=== PATIENT | female | born 1970 | race Caucasian/White ===

== ENCOUNTER 2017-05-20 20:58 | Emergency (ER) | payer MEDICAID ==
[2017-05-20 22:08] LABS: ABSOLUTE BASOPHILS # (AUTO) 0.1 10^3/uL (0.0-0.2); ABSOLUTE EOSINOPHILS # (AUTO) 0.5 10^3/uL (0.0-0.6); ABSOLUTE MONOCYTES (AUTO) 0.9 10^3/uL (0.1-1.4); ABSOLUTE NEUT (AUTO) 7.3 10^3/uL (1.7-8.2); BASOPHILS % (AUTO) 0.6 % (0-2); EOSINOPHILS % (AUTO) 3.5 % (0-6); HEMATOCRIT 38.8 % (36.0-47.0); HEMOGLOBIN 13.2 g/dL (12.0-15.5); LYMPHOCYTES % (AUTO) 36.5 % (13-45); MEAN CORPUSCULAR HEMOGLOBIN 30.5 pg (27.0-33.4); MEAN CORPUSCULAR VOLUME 90 fl (80-97); MONOCYTES % (AUTO) 6.5 % (3-13); PLATELET COUNT 368 10^3/uL (150-450); RED BLOOD COUNT 4.31 10^6/uL (3.72-5.28); RED CELL DISTRIBUTION WIDTH 12.7 % (11.5-14.0); SEGMENTED NEUTROPHILS % (AUTO) 52.9 % (42-78); TOTAL CELLS COUNTED % (AUTO) 100 %; WHITE BLOOD COUNT 13.7 10^3/uL (4.0-10.5)
[2017-05-20 22:19] LABS: ALANINE AMINOTRANSFERASE 28 U/L (9-52); ALBUMIN 4.1 g/dL (3.5-5.0); ALKALINE PHOSPHATASE 89 U/L (38-126); ANION GAP 10 (5-19); ASPARTATE AMINO TRANSFERASE 24 U/L (14-36); BILIRUBIN,DIRECT 0.4 mg/dL (0.0-0.4); BILIRUBIN,TOTAL 0.4 mg/dL (0.2-1.3); BLOOD UREA NITROGEN 21 mg/dL (7-20); CARBON DIOXIDE 26 mmol/L (22-30); CHLORIDE 104 mmol/L (98-107); GLUCOSE 91 mg/dL (75-110); LIPASE 81.6 U/L (23-300); POTASSIUM 4.3 mmol/L (3.6-5.0); SODIUM 140.2 mmol/L (137-145)
[2017-05-20] MEDS ORDERED: MORPHINE SULFATE 10 MG/ML INJ IV ONE (22:33)
[2017-05-20] MEDS ORDERED: ONDANSETRON HCL INJ/PF 4 MG/2 ML SDV IV ONE (22:33)
[2017-05-20] MEDS ORDERED: NORMAL SALINE 1000 ML 1,000 ML IV ONE (22:33)
[2017-05-20 22:34] LABS: APPEARANCE,URINE SLIGHTLY-CLOUDY; BILIRUBIN,URINE SMALL (NEGATIVE); COLOR,URINE YELLOW; GLUCOSE, URINE NEGATIVE (NEGATIVE); KETONES,URINE NEGATIVE (NEGATIVE); LEUKOCYTE ESTERASE,URINE MODERATE (NEGATIVE); NITRITE,URINE NEGATIVE (NEGATIVE); PROTEIN,URINE NEGATIVE (NEGATIVE); URINE SPECIFIC GRAVITY 1.027
--- NOTE | 2017-05-20 22:35 | ER Document Report ---
ED GI/ - General Chief Complaint: Rectal Bleeding Stated Complaint: RECTAL BLEEDING Time Seen by Provider: 05/20/17 22:11 Notes: Patient is a 46-year-old female who comes emergency department for chief complaint of rectal bleed, she states she has had rectal bleeding intermittently for the past 9 days, she states that today if she even squat she will have some rectal bleeding. She states she feels some discomfort rectally, it is not uncomfortable to sit, she does have pain in her abdomen that feels like it is worsening. She denies nausea or vomiting, she had a normal bowel movement earlier today along with some bright red blood dripping into the toilet. She denies fever or chills. Past medical history includes hysterectomy , orthopedic surgeries, she smokes, she is on methotrexate for psoriatic arthritis, has had bladder cancer which she completed treatment for. TRAVEL OUTSIDE OF THE [place] IN LAST 30 DAYS: No - Related Data Allergies/Adverse Reactions: levofloxacin [From Levaquin] Allergy (Verified 09/17/14 23:52) Past Medical History - General Information source: Patient - Social History Smoking Status: Current Every Day Smoker Chew tobacco use (# tins/day): No Frequency of alcohol use: Rare Drug Abuse: None Lives with: Family Family History: Reviewed & Not Pertinent Patient has suicidal ideation: No Patient has homicidal ideation: No Renal/ Medical History: Reports: Hx Kidney Stones, Hx Renal Insufficiency. Denies: Hx Peritoneal Dialysis GI Medical History: Reports: Hx Gastroesophageal Reflux Disease Musculoskeltal Medical History: Reports Hx Arthritis - psoriatic arthritis, Reports Hx Musculoskeletal Deformity, Reports Hx Musculoskeletal Trauma Past Surgical History: Reports: Hx Genitourinary Surgery - Bladder surgery for cancer, Hx Hysterectomy, Hx Orthopedic Surgery - back and neck - Immunizations Hx Diphtheria, Pertussis, Tetanus Vaccination: Yes Review of Systems - Review of Systems Constitutional: No symptoms reported EENT: No symptoms reported Cardiovascular: No symptoms reported Respiratory: No symptoms reported Gastrointestinal: See HPI Genitourinary: No symptoms reported Female Genitourinary: No symptoms reported Musculoskeletal: No symptoms reported Skin: No symptoms reported Hematologic/Lymphatic: No symptoms reported Neurological/Psychological: No symptoms reported Physical Exam - Vital signs Vitals: Temp Pulse Resp BP Pulse Ox 97.7 F 98 20 126/77 H 97 05/20/17 21:09 05/20/17 21:09 05/20/17 21:09 05/20/17 21:09 05/20/17 21:09 - General General appearance: Appears well In distress: None - HEENT Head: Normocephalic, Atraumatic Eyes: Normal Conjunctiva: Normal Extraocular movements intact: Yes Eyelashes: Normal Pupils: PERRL Mouth/Lips: Normal Mucous membranes: Normal Pharynx: Normal Neck: Normal - Respiratory Respiratory status: No respiratory distress Breath sounds: Normal. No: Decreased air movement, Wheezing - Cardiovascular Rhythm: Regular. No: Tachycardia Heart sounds: Normal auscultation, S1 appreciated, S2 appreciated - Abdominal Inspection: Normal Tenderness: Tender - Rectal Stool: Heme negative, See lab result. No: Heme positive, Black, Bloody Hemorrhoids: None. No: Internal, External, Anal fissure, Mass Notes: Carla PCT present during evaluation - Back Back: Normal, Nontender - Extremities General upper extremity: Normal inspection, Nontender, Normal strength, Normal temperature General lower extremity: Normal inspection, Nontender, Normal strength, Normal temperature - Neurological Neuro grossly intact: Yes Cognition: Normal Orientation: AAOx4 Keon Coma Scale Eye Opening: Spontaneous Keon Coma Scale Verbal: Oriented [place] Coma Scale Motor: Obeys Commands [place] Coma Scale Total: 15 Speech: Normal Cranial nerves: Normal Cerebellar coordination: Normal Motor strength normal: LUE, RUE, LLE, RLE 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 Mild leukocytosis with no bandemia or shift. Chemistry unremarkable. Urinalysis nonspecific. Discussed with patient, recommend a CAT scan to rule out perforation, abscess, or other acute abdominal causes. My suspicion is diverticulitis based on her presentation with unremarkable rectal exam but reported rectal bleeding with abdominal pain. CT shows no acute abnormality. No evidence of mass, abscess, perforation. Discussed with patient, she will be covered for diverticulitis, however she needs to follow-up closely for additional evaluation including possible colonoscopy for bleeding sources and pain sources especially with her cancer history. Patient states full understanding of this, states she will call Monday for close follow-up, discussed treatment, return precautions, patient states satisfaction and agreement. - Vital Signs Vital signs: Temp Pulse Resp BP Pulse Ox 97.7 F 75 16 139/79 H 98 05/20/17 21:09 05/21/17 01:00 05/21/17 01:00 05/21/17 01:00 05/21/17 01:00 - Laboratory Result Diagrams: 05/20/17 21:40 05/20/17 21:40 Laboratory results interpreted by me: 05/20/17 05/20/17 05/20/17 21:40 21:40 21:40 WBC 13.7 H Absolute Lymphocytes 5.0 H BUN 21 H Urine Blood SMALL H Urine Bilirubin SMALL H Urine Urobilinogen 2.0 H Ur Leukocyte Esterase MODERATE H Discharge - Discharge Clinical Impression: Hematochezia Abdominal pain Qualifiers: Abdominal location: lower abdomen, unspecified Qualified Code(s): R10.30 - Lower abdominal pain, unspecified Condition: Stable Disposition: HOME, SELF-CARE Additional Instructions: Your CAT scan shows diverticulosis, no obvious areas of inflammation or abnormality. Your blood counts, examination, and symptoms are most suggestive of diverticulitis. We are treating you with Augmentin for this. Take the pain and nausea medication if needed, I recommend clear fluid diet for the first 1-2 days. Please follow closely with your provider on Monday as discussed, you will need additional evaluation for bleeding if symptoms continue. Return if you worsen including heavy bleeding, passing out, fever, severe abdominal pain, vomiting, or any other concerning or worsening symptoms. Prescriptions: Amox Tr/Potassium Clavulanate [Augmentin 875-125 Tablet] 1 tab PO BID 7 Days tablet Hydrocodone/Acetaminophen [[place]well 5-325 mg Tablet] 1 - 2 tab PO ASDIR #15 tablet Ondansetron [Zofran Odt 4 mg Tablet] 1 - 2 tab PO Q4H PRN #15 tab.rapdis PRN Reason: For Nausea/Vomiting
--- NOTE | 2017-05-20 23:40 | RADIOLOGY REPORT (SQ) ---
EXAM DESCRIPTION: CT ABD/PELVIS WITH IV ONLY COMPLETED DATE/TIME: 05/20/2017 11:28 pm REASON FOR STUDY: eval abd pain, rectal bleeding COMPARISON: 11/10/2015. TECHNIQUE: CT scan of the abdomen and pelvis performed using helical scanning technique with dynamic intravenous contrast injection. No oral contrast. Images reviewed with lung, soft tissue, and bone windows. Reconstructed coronal and sagittal MPR images reviewed. Delayed images for evaluation of the urinary system also acquired. All images stored on PACS. All CT scanners at this facility use dose modulation, iterative reconstruction, and/or weight based d osing when appropriate to reduce radiation dose to as low as reasonably achievable (ALARA). [facility]: Dose Right [facility]: CareDose [facility]: Dose Right [facility]: Teradose 4D [facility]: MyDROBE CONTRAST TYPE AND DOSE: contrast/concentration: Isovue 370.00 mg/ml; Total Contrast Delivered: 100.0 ml; Total Saline Delivered: 70.0 ml RENAL FUNCTION: None required. The patient is less than 50 years old. RADIATION DOSE: CT Rad equipment meets quality standard of care and radiation dose reduction techniq ues were employed. CTDIvol: 9.5 - 11.0 mGy. DLP: 1064 mGy-cm.. LIMITATIONS: None. FINDINGS: LOWER CHEST: No significant findings. No nodules or infiltrates. LIVER: Normal size. No masses. No dilated ducts. SPLEEN: Normal size. No focal lesions. PANCREAS: No masses. No significant calcifications. No adjacent inflammation or peripancreatic fluid collections. Pancreatic duct not dilated. GALLBLADDER: No identified stones by CT criteria. No inflammatory changes to suggest cholecystitis. ADRENAL GLANDS: No significant masses or asymmetry. RIGHT KIDNEY AND URETER: No solid masses. No significant calcifications. No hydronephrosis or hyd roureter. LEFT KIDNEY AND URETER: No solid masses. No significant calcifications. No hydronephrosis or hydr oureter. AORTA AND VESSELS: No aneurysm. No dissection. Renal arteries, SMA, celiac without stenosis. RETROPERITONEUM: No retroperitoneal adenopathy, hemorrhage or masses. BOWEL AND PERITONEAL CAVITY: There are few diverticuli in the descending and sigmoid colon. No w[place]ka s or inflammatory changes. No free fluid or peritoneal masses. APPENDIX: Normal. PELVIS: No mass. No free fluid. Normal bladder. ABDOMINAL WALL: No masses. No hernias. BONES: No significant or acute findings. OTHER: No other significant finding. IMPRESSION: MILD COLONIC DIVERTICULOSIS. NO CT FINDINGS OF ACUTE DIVERTICULITIS. NO OTHER SIGNIFIC ANT OR ACUTE FINDING IN THE ABDOMEN OR PELVIS ON CT SCAN WITH IV CONTRAST. TECHNICAL DOCUMENTATION: JOB ID: [id number] Quality ID # [id number]: Final reports with documentation of one or more dose reduction techniques (e.g., Au tomated exposure control, adjustment of the mA and/or kV according to patient size, use of iterative reconstruction technique) 2010 [employer]- All Rights Reserved Reading location - IP/workstation name: [email or web address]
[2017-05-20] MEDS ORDERED: HYDROCODONE/ACETAMINOPHEN 5-325 MG (6 TAB/ER DISP) PO PRN (23:52)
[2017-05-20] MEDS ORDERED: AMOXICILLIN TR/POT CLAVULANATE 500-125 MG TAB PO ONE (23:52)
[2017-05-20] MEDS ORDERED: ONDANSETRON ODT 4 MG TAB (6 TAB/ER DISP) PO PRN (23:52)
[2017-05-21] MEDS ORDERED: SUCRALFATE 1 GM TABLET PO ONE (00:20)
[2017-05-21] MEDS ORDERED: FAMOTIDINE 20 MG TABLET PO ONE (00:20)
[2017-05-21 01:00] VITALS: BP 139/79
== END 2017-05-21 01:00 | disposition home or self-care (01) ==
LOC: ER 20:58
DX: K92.1 Melena (principal); R10.30 Lower abdominal pain, unspecified; R10.9 Unspecified abdominal pain; D72.829 Elevated white blood cell count, unspecified; F17.200 Nicotine dependence, unspecified, uncomplicated; Z85.51 Personal history of malignant neoplasm of bladder; Z79.899 Other long term (current) drug therapy
CPT/HCPCS: 99284; 96361; 96374; 96375; 86900; 86901; 36415; 86850; 83690; 85025; 82272; 80053; 81001; 74177; J3490; J2270; J2405; J7030

== ENCOUNTER 2017-06-14 09:15 | Emergency (ER) | payer MEDICAID ==
[2017-06-14 09:37] VITALS: BP 131/82
--- NOTE | 2017-06-14 09:59 | ER Document Report ---
ED Medical Screen (RME) - General Chief Complaint: Abdominal Pain Stated Complaint: RECTAL BLEEDING Time Seen by Provider: 06/14/17 09:57 Mode of Arrival: Ambulatory Information source: Patient TRAVEL OUTSIDE OF THE [place] IN LAST 30 DAYS: No - HPI Onset: Last week Onset/Duration: Worse - THIS AM Quality of pain: Cramping Associated Symptoms: Chills, Fever, Other - RECTAL BLEEDING Exacerbated by: Denies Relieved by: Denies Similar symptoms previously: Yes Recently seen / treated by doctor: Yes - Related Data Allergies/Adverse Reactions: levofloxacin [From Levaquin] Allergy (Verified 06/14/17 09:19) Home Medications: cipro, flagyl, synthroid, effexor, melatonin, benadryl, embrel , methotrexate Past Medical History - General Information source: Patient - Social History Chew tobacco use (# tins/day): No Frequency of alcohol use: None Drug Abuse: None Family history: Arthritis, CAD, CVA, DM, Hyperlipidemia, Hypertension, Malignancy - Past Medical History Cardiac Medical History: Reports: None Pulmonary Medical History: Reports: None Neurological Medical History: Reports: None Endocrine Medical History: Reports: None Renal/ Medical History: Reports: Hx Kidney Stones, Hx Renal Insufficiency. Denies: Hx Peritoneal Dialysis GI Medical History: Reports: Hx Diverticulitis, Hx Gastroesophageal Reflux Disease Musculoskeltal Medical History: Reports Hx Arthritis - psoriatic arthritis, Reports Hx Musculoskeletal Deformity, Reports Hx Musculoskeletal Trauma Psychiatric Medical History: Reports: None Past Surgical History: Reports: Hx Genitourinary Surgery - Bladder surgery for cancer, Hx Hysterectomy, Hx Orthopedic Surgery - back and neck - Immunizations Hx Diphtheria, Pertussis, Tetanus Vaccination: Yes Review of Systems - Review of Systems Constitutional: Chills, Fever EENT: No symptoms reported Cardiovascular: No symptoms reported Respiratory: No symptoms reported Gastrointestinal: See HPI Genitourinary: No symptoms reported Musculoskeletal: No symptoms reported Skin: No symptoms reported Neurological/Psychological: No symptoms reported Physical Exam - Vital signs Vitals: Temp Pulse Resp BP Pulse Ox 98.4 F 92 20 131/82 H 99 06/14/17 09:36 06/14/17 09:36 06/14/17 09:36 06/14/17 09:36 06/14/17 09:36 Interpretation: Normal. No: Tachycardic, Tachypneic, Febrile - General General appearance: Appears well, Alert In distress: None - HEENT Head: Normocephalic Eyes: Normal Conjunctiva: Normal Mouth/Lips: Normal Mucous membranes: Normal - Respiratory Respiratory status: No respiratory distress - Cardiovascular Rhythm: Regular Course - Vital Signs Vital signs: Temp Pulse Resp BP Pulse Ox 98.4 F 92 20 131/82 H 99 06/14/17 09:36 06/14/17 09:36 06/14/17 09:36 06/14/17 09:36 06/14/17 09:36
[2017-06-14] MEDS ORDERED: NORMAL SALINE 1000 ML 1,000 ML IV PRN (10:00)
[2017-06-14] MEDS ORDERED: ONDANSETRON HCL INJ/PF 4 MG/2 ML SDV IV ONE ×2 (10:09→12:02)
[2017-06-14 11:07] LABS: ABSOLUTE EOSINOPHILS # (AUTO) 0.2 10^3/uL (0.0-0.6); ABSOLUTE LYMPHOCYTES (AUTO) 2.9 10^3/uL (0.5-4.7); ABSOLUTE MONOCYTES (AUTO) 0.5 10^3/uL (0.1-1.4); ABSOLUTE NEUT (AUTO) 6.8 10^3/uL (1.7-8.2); BASOPHILS % (AUTO) 0.4 % (0-2); EOSINOPHILS % (AUTO) 2.1 % (0-6); LYMPHOCYTES % (AUTO) 27.7 % (13-45); MEAN CORPUSCULAR HEMOGLOBIN 31.1 pg (27.0-33.4); MEAN CORPUSCULAR VOLUME 92 fl (80-97); MONOCYTES % (AUTO) 4.8 % (3-13); PLATELET COUNT 334 10^3/uL (150-450); RED BLOOD COUNT 4.81 10^6/uL (3.72-5.28); RED CELL DISTRIBUTION WIDTH 13.8 % (11.5-14.0); TOTAL CELLS COUNTED % (AUTO) 100 %; WHITE BLOOD COUNT 10.4 10^3/uL (4.0-10.5)
[2017-06-14 11:11] LABS: APPEARANCE,URINE CLEAR; BILIRUBIN,URINE NEGATIVE (NEGATIVE); COLOR,URINE YELLOW; GLUCOSE, URINE NEGATIVE (NEGATIVE); KETONES,URINE NEGATIVE (NEGATIVE); LEUKOCYTE ESTERASE,URINE NEGATIVE (NEGATIVE); NITRITE,URINE NEGATIVE (NEGATIVE); PROTEIN,URINE NEGATIVE (NEGATIVE); URINE SPECIFIC GRAVITY 1.008; UROBILINOGEN,URINE NEGATIVE mg/dL (<2.0)
[2017-06-14 11:12] LABS: INTERNATIONAL RATION (INR) 0.94; PROTHROMBIN TIME 13.1 SEC (11.4-15.4)
[2017-06-14 11:27] LABS: ALANINE AMINOTRANSFERASE 25 U/L (9-52); ALBUMIN 4.6 g/dL (3.5-5.0); ALKALINE PHOSPHATASE 88 U/L (38-126); ANION GAP 12 (5-19); ASPARTATE AMINO TRANSFERASE 21 U/L (14-36); BILIRUBIN,DIRECT 0.4 mg/dL (0.0-0.4); BILIRUBIN,TOTAL 0.5 mg/dL (0.2-1.3); BLOOD UREA NITROGEN 16 mg/dL (7-20); CALCIUM 10.3 mg/dL (8.4-10.2); CARBON DIOXIDE 27 mmol/L (22-30); CHLORIDE 103 mmol/L (98-107); GLUCOSE 97 mg/dL (75-110); LIPASE 135.1 U/L (23-300); POTASSIUM 4.6 mmol/L (3.6-5.0); SODIUM 142.3 mmol/L (137-145); TOTAL PROTEIN 7.4 g/dL (6.3-8.2)
[2017-06-14] MEDS ORDERED: MORPHINE SULFATE 10 MG/ML INJ IV ONE (12:02)
--- NOTE | 2017-06-14 14:03 | RADIOLOGY REPORT (SQ) ---
EXAM DESCRIPTION: CT ABD/PELVIS WITH IV ORAL COMPLETED DATE/TIME: 06/14/2017 1:47 pm REASON FOR STUDY: ABD. PAIN, RECTAL BLEEDING, H/O DIVERTICULITIS COMPARISON: 11/10/2015, 05/20/2017 CT abdomen pelvis TECHNIQUE: CT scan of the abdomen and pelvis performed using helical scanning technique with dynamic intravenous contrast injection. Patient drank oral contrast. Images reviewed with lung, soft tissue , and bone windows. Reconstructed coronal and sagittal MPR images reviewed. Delayed images for evalua tion of the urinary system also acquired. All images stored on PACS. All CT scanners at this facility use dose modulation, iterative reconstruction, and/or weight based d osing when appropriate to reduce radiation dose to as low as reasonably achievable (ALARA). [facility]: Dose Right [facility]: CareDose [facility]: Dose Right [facility]: Teradose 4D [facility]: No.1 Traveller CONTRAST TYPE AND DOSE: contrast/concentration: Isovue 370.00 mg/ml; Total Contrast Delivered: 94.0 ml; Total Saline Delivered: 71.0 ml RENAL FUNCTION: Creatinine 0.6 at RADIATION DOSE: CT Rad equipment meets quality standard of care and radiation dose reduction techniq ues were employed. CTDIvol: 9.0 - 12.6 mGy. DLP: 1205 mGy-cm.. LIMITATIONS: None. FINDINGS: LOWER CHEST: No significant findings. No nodules or infiltrates. Bilateral breast implant s are present LIVER: Normal size. No masses. No dilated ducts. SPLEEN: Normal size. No focal lesions. PANCREAS: No masses. No significant calcifications. No adjacent inflammation or peripancreatic fluid collections. Pancreatic duct not dilated. GALLBLADDER: No identified stones by CT criteria. No inflammatory changes to suggest cholecystitis. ADRENAL GLANDS: No significant masses or asymmetry. RIGHT KIDNEY AND URETER: No solid masses. No significant calcifications. No hydronephrosis or hyd roureter. LEFT KIDNEY AND URETER: No solid masses. No significant calcifications. No hydronephrosis or hydr oureter. AORTA AND VESSELS: No aneurysm. No dissection. Renal arteries, SMA, celiac without stenosis. RETROPERITONEUM: No retroperitoneal adenopathy, hemorrhage or masses. BOWEL AND PERITONEAL CAVITY: Patient drank oral contrast. No CT evidence of bowel obstruction or arabella e intraperitoneal air or fluid. Few descending and sigmoid colon diverticuli are present without CT signs of acute diverticulitis. APPENDIX: Normal. PELVIS: No mass. No free fluid. Normal bladder. Patient is post hysterectomy. Right ovary 5 x 2.5 cm in size with a 3.5 cm cyst best shown on axial images 69-75. Left ovary 3 x 2 cm in size on axial image 70. Small amount of air bubbles in the vagina, nonspecific ABDOMINAL WALL: No masses. No hernias. BONES: No significant or acute findings. OTHER: No other significant finding. IMPRESSION: No CT evidence of bowel obstruction, free intraperitoneal air or fluid, or intra-abdomin al or pelvic abscess. Right-sided ovarian cyst. TECHNICAL DOCUMENTATION: JOB ID: [id number] Quality ID # [id number]: Final reports with documentation of one or more dose reduction techniques (e.g., Au tomated exposure control, adjustment of the mA and/or kV according to patient size, use of iterative reconstruction technique) 2010 [employer]- All Rights Reserved Reading location - IP/workstation name: [email or web address]
[2017-06-14] MEDS ORDERED: METRONIDAZOLE 500 MG TABLET PO ONE (15:27)
[2017-06-14] MEDS ORDERED: CIPROFLOXACIN HCL 500 MG TABLET PO ONE (15:27)
[2017-06-14] MEDS ORDERED: ONDANSETRON 4 MG TAB.RAPDIS PO ONE (15:27)
[2017-06-14] MEDS ORDERED: DICYCLOMINE HCL 20 MG TABLET PO ONE (15:27)
--- NOTE | 2017-06-14 15:37 | ER Document Report ---
ED General - General Chief Complaint: Abdominal Pain Stated Complaint: RECTAL BLEEDING Time Seen by Provider: 06/14/17 09:57 Mode of Arrival: Ambulatory TRAVEL OUTSIDE OF THE [place] IN LAST 30 DAYS: No - HPI Patient complains to provider of: Abdominal pain Notes: Patient coming in for left lower quadrant abdominal pain also states she is having bloody stools. Patient states recently seen and diagnosed diverticulitis. Patient states she was on antibiotics 7 days Augmentin saw her PCP started on ciprofloxacin still having pains and now is on another course of ofloxacin and Flagyl. Patient denies any fevers chills nausea vomiting. Patient resting comfortably upon my evaluation. States lower quadrant abdominal pain achy. - Related Data Allergies/Adverse Reactions: levofloxacin [From Levaquin] Allergy (Verified 06/14/17 09:19) bees Allergy (Uncoded 06/14/17 11:55) Home Medications: cipro, flagyl, synthroid, effexor, melatonin, benadryl, embrel , methotrexate Past Medical History - General Information source: Patient - Social History Smoking Status: Current Every Day Smoker Chew tobacco use (# tins/day): No Frequency of alcohol use: None Drug Abuse: None Family History: Reviewed & Not Pertinent Patient has suicidal ideation: No Patient has homicidal ideation: No - Past Medical History Cardiac Medical History: Reports: None Pulmonary Medical History: Reports: None Neurological Medical History: Reports: None Endocrine Medical History: Reports: None Renal/ Medical History: Reports: Hx Kidney Stones, Hx Renal Insufficiency. Denies: Hx Peritoneal Dialysis GI Medical History: Reports: Hx Diverticulitis, Hx Gastroesophageal Reflux Disease Musculoskeltal Medical History: Reports Hx Arthritis - psoriatic arthritis, Reports Hx Musculoskeletal Deformity, Reports Hx Musculoskeletal Trauma Psychiatric Medical History: Reports: None Past Surgical History: Reports: Hx Abdominal Surgery - Abdominoplasty, Hx Genitourinary Surgery - Bladder surgery for cancer, Hx Hysterectomy, Hx Orthopedic Surgery - back and neck - Immunizations Hx Diphtheria, Pertussis, Tetanus Vaccination: Yes Review of Systems - Review of Systems Constitutional: No symptoms reported EENT: No symptoms reported Cardiovascular: No symptoms reported Respiratory: No symptoms reported Gastrointestinal: Abdominal pain, Rectal bleeding Genitourinary: No symptoms reported Female Genitourinary: No symptoms reported Musculoskeletal: No symptoms reported Skin: No symptoms reported Hematologic/Lymphatic: No symptoms reported Neurological/Psychological: No symptoms reported -: Yes All other systems reviewed and negative Physical Exam - Vital signs Vitals: Temp Pulse Resp BP Pulse Ox 98.4 F 92 20 131/82 H 99 06/14/17 09:36 06/14/17 09:36 06/14/17 09:36 06/14/17 09:36 06/14/17 09:36 Interpretation: Normal - General General appearance: Appears well, Alert - HEENT Head: Normocephalic, Atraumatic Eyes: Normal Pupils: PERRL - Respiratory Respiratory status: No respiratory distress Chest status: Nontender Breath sounds: Normal Chest palpation: Normal - Cardiovascular Rhythm: Regular Heart sounds: Normal auscultation Murmur: No - Abdominal Inspection: Normal Distension: No distension Bowel sounds: Normal Tenderness: Nontender Organomegaly: No organomegaly - Rectal Stool: Heme positive - Light brown stool on rectal exam Hemorrhoids: None - Back Back: Normal, Nontender - Extremities General upper extremity: Normal inspection, Nontender, Normal color, Normal ROM , Normal temperature General lower extremity: Normal inspection, Nontender, Normal color, Normal ROM , Normal temperature, Normal weight bearing. No: Arabella's sign - Neurological Neuro grossly intact: Yes Cognition: Normal Orientation: AAOx4 Keon Coma Scale Eye Opening: Spontaneous Keon Coma Scale Verbal: Oriented [place] Coma Scale Motor: Obeys Commands [place] Coma Scale Total: 15 Speech: Normal Motor strength normal: LUE, RUE, LLE, RLE Sensory: Normal - Psychological Associated symptoms: Normal affect, Normal mood - Skin Skin Temperature: Warm Skin Moisture: Dry Skin Color: Normal Course - Re-evaluation Re-evalutation: 06/14/17 19:16 Patient coming in for evaluation of left lower quadrant abdominal pain. CT scan otherwise negative. No leukocytosis. Patient does have apparently microscopic blood is Hemoccult was positive however light brown stool on examination patient case was discussed with Dr. Brunson. Recommended extended course of antibiotics and follow-up in his office or another GI specialist. Patient was encouraged follow-up with her PCP along with GI specialist. The patient presents with abdominal pain without signs of peritonitis or other life-threatening or serious etiology. The patient appears stable for discharge and has been instructed to return immediately if the symptoms worsen in any way , or in 8-12hr if not improved for re-evaluation. The patient has been instructed to return if the symptoms worsen or change in any way. - Vital Signs Vital signs: Temp Pulse Resp BP Pulse Ox 98.4 F 92 20 131/82 H 99 06/14/17 09:36 06/14/17 09:36 06/14/17 09:36 06/14/17 09:36 06/14/17 09:36 - Laboratory Result Diagrams: 06/14/17 10:38 06/14/17 10:38 Laboratory results interpreted by me: 06/14/17 06/14/17 10:38 10:38 Calcium 10.3 H Urine Blood MODERATE H Discharge - Discharge Clinical Impression: Diverticulitis Condition: Good Disposition: HOME, SELF-CARE Instructions: Diverticulitis ([facility]) Additional Instructions: Follow-up with your primary care physician. Your CAT scan today does not show any signs of acute diverticulitis or complication from previous treatment. Your laboratory results also are negative for any signs of bad infection. I discussed your case with our GI specialist Dr. Brunson at this time this recommend extended course of antibiotics for approximately 2 weeks. I will give you a prescription to extend out her Cipro and Flagyl. Also give the Bentyl for pain control Zofran and Phenergan for nausea control. Please make sure you follow-up with your physician for a GI referral or he can also follow-up with Dr. Brunson. Prescriptions: Ciprofloxacin HCl [Cipro 500 mg Tablet] 500 mg PO BID #10 tablet Dicyclomine HCl [Bentyl 20 mg Tablet] 20 mg PO QID #30 tablet Metronidazole [Flagyl 500 mg Tablet] 500 mg PO TID #15 tablet Ondansetron [Zofran Odt] 4 mg PO Q6 PRN #30 tab.rapdis PRN Reason: For Nausea/Vomiting Promethazine HCl [Phenergan 25 mg Tablet] 25 mg PO Q6 #30 tablet Referrals: PETERSON PÉREZ MD [Primary Care Provider] - Follow up as needed MARCI BRUNSON MD [ACTIVE STAFF] - Follow up as needed
== END 2017-06-14 15:55 | disposition home or self-care (01) ==
LOC: ER 09:15
DX: K57.92 Diverticulitis of intestine, part unspecified, without perforation or abscess without bleeding (principal); R10.32 Left lower quadrant pain; F17.200 Nicotine dependence, unspecified, uncomplicated
CPT/HCPCS: 99284; 96361; 96374; 96375; 36415; 87040; 83690; 85025; 85610; 82272; 80053; 81001; 74177; J3490 ×3; S0119; J2270; J2405; J7030

== ENCOUNTER → 2018-01-31 | Outpatient (CLI) | payer MEDICAID ==
--- NOTE | 2018-02-02 08:39 | XCELERA REPORT ---
[address] [address] Tel: [phone] Fax: [phone] Lower Extremity Arterial Evaluation Name: CURTIS ARIAS Age: 47 yrs Gender: Female : 1970 Patient Status: Outpatient Patient Location: [facility] Study Date: 01/31/2018 02:41 PM Procedure: Ankle brachial indicies performed. Reason For Study: PAIN IN LEG Ordering Physician: ASHLY MCCOY Performed By: Haley Del Cid Right Side Arterial Evaluation DIANE in Anterior Tibial:1.06. Multiphasic waveform. Left Side Arterial Evaluation DIANE in Posterior Tibial:1.06. DIANE in Anterior Tibial:1.06. Multiphasic waveform. Interpretation Summary Normal DIANE. Suggesting normal arterial system, within the limitations of this technique. : ASHLY MCCOY > Ashly Mccoy
== END ==
LOC: SP 13:33
PROVIDERS: ATTEND Surgery
DX: M79.606 Pain in leg, unspecified (principal)
CPT/HCPCS: 93922

== ENCOUNTER → 2018-02-07 | Day surgery (SDC) | payer MEDICAID ==
--- NOTE | 2018-02-07 10:50 | RADIOLOGY REPORT (SQ) ---
EXAM DESCRIPTION: ARTHRO SHOULDER INJECTION; FLUORO/NEEDLE PLACEMENT COMPLETED DATE/TIME: 02/07/2018 10:35 am REASON FOR STUDY: IMPINGEMENT SYNDROME OF LEFT SHOULDER M75.42 IMPINGEMENT SYNDROME OF LEFT SHOULDE R COMPARISON: None. FLUOROSCOPY TIME: 7 seconds 1 digital radiographic images saved to PACS. LIMITATIONS: None. PROCEDURE: Procedure, risks, benefits and alternatives explained to patient who then gave written co nsent. The posterior left glenohumeral joint at the shoulder was marked and a time out was called for correct procedure verification. Posterior entry site marked using fluoroscopic guidance. Shoulder prepped and draped using sterile technique. Local anesthesia achieved using 7 mL of 1% lidocaine inj ection. 22 gauge spinal needle introduced into the joint space under direct fluoroscopic visualizati on. Non-ionic contrast instilled to confirm intra-articular position. Dilute gadolinium solution then injected. Needle removed and entry site covered with sterile bandage. No immediate complications no rianna. TECHNIQUE: Digital images acquired during fluoroscopy and stored on PACS. Patient immediately take n to the MR suite for additional imaging. INJECTION LOCATION: Left posterior glenohumeral joint CONTRAST TYPE AND AMOUNT: 1 mL of Omnipaque 300 was injected to confirm intra-articular needle placem ent followed by 10 mL of dilute Dotarem/Saline mixture. IMPRESSION: SUCCESSFUL NEEDLE PLACEMENT AND INJECTION FOR LEFT SHOULDER MR ARTHROGRAM USING POSTERIO R APPROACH. COMMENT: Quality ID [id number]: Final reports for procedures using fluoroscopy that document radiation exp osure indices, or exposure time and number of fluorographic images (if radiation exposure indices are not available) TECHNICAL DOCUMENTATION: JOB ID: [id number] [email or web address]- All Rights Reserved Reading location - IP/workstation name: [email or web address]
--- NOTE | 2018-02-07 10:50 | RADIOLOGY REPORT (SQ) ---
EXAM DESCRIPTION: ARTHRO SHOULDER INJECTION; FLUORO/NEEDLE PLACEMENT COMPLETED DATE/TIME: 02/07/2018 10:35 am REASON FOR STUDY: IMPINGEMENT SYNDROME OF LEFT SHOULDER M75.42 IMPINGEMENT SYNDROME OF LEFT SHOULDE R COMPARISON: None. FLUOROSCOPY TIME: 7 seconds 1 digital radiographic images saved to PACS. LIMITATIONS: None. PROCEDURE: Procedure, risks, benefits and alternatives explained to patient who then gave written co nsent. The posterior left glenohumeral joint at the shoulder was marked and a time out was called for correct procedure verification. Posterior entry site marked using fluoroscopic guidance. Shoulder prepped and draped using sterile technique. Local anesthesia achieved using 7 mL of 1% lidocaine inj ection. 22 gauge spinal needle introduced into the joint space under direct fluoroscopic visualizati on. Non-ionic contrast instilled to confirm intra-articular position. Dilute gadolinium solution then injected. Needle removed and entry site covered with sterile bandage. No immediate complications no rianna. TECHNIQUE: Digital images acquired during fluoroscopy and stored on PACS. Patient immediately take n to the MR suite for additional imaging. INJECTION LOCATION: Left posterior glenohumeral joint CONTRAST TYPE AND AMOUNT: 1 mL of Omnipaque 300 was injected to confirm intra-articular needle placem ent followed by 10 mL of dilute Dotarem/Saline mixture. IMPRESSION: SUCCESSFUL NEEDLE PLACEMENT AND INJECTION FOR LEFT SHOULDER MR ARTHROGRAM USING POSTERIO R APPROACH. COMMENT: Quality ID [id number]: Final reports for procedures using fluoroscopy that document radiation exp osure indices, or exposure time and number of fluorographic images (if radiation exposure indices are not available) TECHNICAL DOCUMENTATION: JOB ID: [id number] [employer]- All Rights Reserved Reading location - IP/workstation name: [email or web address]
--- NOTE | 2018-02-07 11:41 | RADIOLOGY REPORT (SQ) ---
EXAM DESCRIPTION: MRI LT UPPER JOINT WITH COMPLETED DATE/TIME: 02/07/2018 11:14 am REASON FOR STUDY: IMPINGEMENT SYNDROME OF LEFT SHOULDER M75.42 IMPINGEMENT SYNDROME OF LEFT SHOULDE R COMPARISON: Left arthrogram earlier today TECHNIQUE: Left shoulder images acquired and stored on PACS. Oblique coronal, oblique sagittal, and axial imaging to include fat sensitive sequences as T1, water sensitive sequences as FST2/STIR, and c ontrast sensitive sequences as FST1. LIMITATIONS: None. FINDINGS: JOINT DISTENTION: Adequate distention for interpretation. BONE MARROW AND CORTEX: Normal. No significant osteophytes. No edema or defects. AC JOINT: Type II acromion. No significant AC joint arthropathy. GLENOHUMERAL JOINT: No subluxation or dislocation. No focal chondral defects or reactive bone changes . ROTATOR CUFF: Full-thickness tear anterior half of the supraspinatus tendon, with tracking of contras t into the subacromial/subdeltoid bursa. This is best shown on coronal images 7-12, and sagittal jessica ges 10-14. Remainder of the rotator cuff is intact. LABRUM AND BICEPS LABRAL COMPLEX: Normal signal in the rotator interval without tear of the superior glenohumeral ligament. Superior labrum, intra-articular long head biceps intact. Distal biceps in no rmal anatomic location in bicipital groove. No paralabral cysts. INFERIOR LABRAL COMPLEX: Bony glenoid and labrum intact. IGHL intact without thickening or tear. No p aralabral cysts. ADJACENT SOFT TISSUES: No masses or nodes. OTHER: No other significant finding. IMPRESSION: Anterior half distal supraspinatus tendon tear. TECHNICAL DOCUMENTATION: JOB ID: [id number] [employer]- All Rights Reserved Reading location - IP/workstation name: [email or web address]
== END ==
LOC: RAD 09:38
PROVIDERS: ATTEND Orthopaedic Surgery Sports Medicine
DX: M75.42 Impingement syndrome of left shoulder (principal); M75.102 Unspecified rotator cuff tear or rupture of left shoulder, not specified as traumatic
CPT/HCPCS: 73222; 77002; 23350; A9576

== ENCOUNTER 2018-03-04 16:02 | Emergency (ER) | payer MEDICAID ==
--- NOTE | 2018-03-04 16:16 | ER Document Report ---
ED Medical Screen (RME) - General Chief Complaint: Neck Problem Stated Complaint: NECK PAIN, ARMS TINGLING Time Seen by Provider: 03/04/18 16:13 Mode of Arrival: Ambulatory Information source: Patient TRAVEL OUTSIDE OF THE [place] IN LAST 30 DAYS: No - HPI Patient complains to provider of: neck pain; arm numbness Onset: Yesterday - pt was driving yesterday and turned her neck and heard a pop. Has had bilateral arm numbness since. Denies direct trauma - Related Data Allergies/Adverse Reactions: levofloxacin [From Levaquin] Allergy (Verified 06/14/17 09:19) bees Allergy (Uncoded 06/14/17 11:55) Past Medical History - Social History Chew tobacco use (# tins/day): No Frequency of alcohol use: None Drug Abuse: None Family history: Arthritis, CAD, CVA, DM, Hyperlipidemia, Hypertension, Malignancy Renal/ Medical History: Reports: Hx Kidney Stones, Hx Renal Insufficiency. Denies: Hx Peritoneal Dialysis GI Medical History: Reports: Hx Diverticulitis, Hx Gastroesophageal Reflux Disease Musculoskeltal Medical History: Reports Hx Arthritis - psoriatic arthritis, Reports Hx Musculoskeletal Deformity, Reports Hx Musculoskeletal Trauma Past Surgical History: Reports: Hx Abdominal Surgery - Abdominoplasty, Hx Genitourinary Surgery - Bladder surgery for cancer, Hx Hysterectomy, Hx Orthopedic Surgery - back and neck - Immunizations Hx Diphtheria, Pertussis, Tetanus Vaccination: Yes Physical Exam - Vital signs Vitals: Temp Pulse Resp BP Pulse Ox 97.4 F 80 16 122/77 99 03/04/18 16:06 03/04/18 16:06 03/04/18 16:06 03/04/18 16:06 03/04/18 16:06 Course - Vital Signs Vital signs: Temp Pulse Resp BP Pulse Ox 97.4 F 80 16 122/77 99 03/04/18 16:06 03/04/18 16:06 03/04/18 16:06 03/04/18 16:06 03/04/18 16:06 Doctor's Discharge - Discharge Referrals: LEO ROBERT MD [Primary Care Provider] - Follow up as needed
--- NOTE | 2018-03-04 17:12 | RADIOLOGY REPORT (SQ) ---
EXAM DESCRIPTION: CT CERVICAL SPINE WITHOUT COMPLETED DATE/TIME: 03/04/2018 4:31 pm REASON FOR STUDY: neck pain; arm numbness COMPARISON: None. TECHNIQUE: Axial images acquired through the cervical spine without intravenous contrast. Images re viewed with lung, soft tissue and bone windows. Reconstructed coronal and sagittal MPR images review ed. Images stored on PACS. All CT scanners at this facility use dose modulation, iterative reconstruction, and/or weight based d osing when appropriate to reduce radiation dose to as low as reasonably achievable (ALARA). [facility]: Dose Right [facility]: CareDose [facility]: Dose Right [facility]: Teradose 4D [facility]: Smart Xdynia RADIATION DOSE: CT Rad equipment meets quality standard of care and radiation dose reduction techniq ues were employed. CTDIvol: 19.5 mGy. DLP: 478 mGy-cm. mGy. LIMITATIONS: None. FINDINGS: ALIGNMENT: Anatomic. MINERALIZATION: Normal. VERTEBRAL BODIES: No fractures or dislocation. DISCS: 5 mm focal protrusion in the left lateral recess-proximal neural foramen at the C5-6 level. M oderate disc space narrowing at this level. FACETS, LATERAL MASSES, POSTERIOR ELEMENTS: Facet arthropathy. No fractures. No dislocation. No ac [place] findings. HARDWARE: Surgical fusion at the C6-7 level. VISUALIZED RIBS: No fractures. LUNG APICES AND SOFT TISSUES: No significant or acute findings. OTHER: No other significant finding. IMPRESSION: 5 mm focal protrusion in the left lateral recess-proximal neural foramen at the C5-6 lev el. No acute osseous findings. TECHNICAL DOCUMENTATION: JOB ID: [id number]-72 Quality ID # [id number]: Final reports with documentation of one or more dose reduction techniques (e.g., Au tomated exposure control, adjustment of the mA and/or kV according to patient size, use of iterative reconstruction technique) 2010 [employer]- All Rights Reserved Reading location - IP/workstation name: [email or web address]
--- NOTE | 2018-03-04 17:54 | ER Document Report ---
ED Neck/Back Problem - General Mode of Arrival: Ambulatory Information source: Patient TRAVEL OUTSIDE OF THE U.[place]. IN LAST 30 DAYS: No - General Chief Complaint: Neck Problem Stated Complaint: NECK PAIN, ARMS TINGLING Time Seen by Provider: 03/04/18 16:13 Notes: 47-year-old female who presents to the emergency department today with complaints of neck pain. Patient states she had neck surgery around 15 years ago. Patient states she was driving and "stretching her neck" by turning it from side to side when she felt a pop. Patient has noticed numbness and tingling in her left hand. Patient complains of left neck pain. Patient denies any trauma or new weakness to her left upper extremity. (ACE KAMARA) - Related Data Allergies/Adverse Reactions: levofloxacin [From Levaquin] Allergy (Verified 06/14/17 09:19) bees Allergy (Uncoded 06/14/17 11:55) Past Medical History - General Information source: Patient - Social History Smoking Status: Current Every Day Smoker Cigarette use (# per day): Yes Chew tobacco use (# tins/day): No Frequency of alcohol use: None Drug Abuse: None Lives with: Family Family History: Reviewed & Not Pertinent Patient has suicidal ideation: No Patient has homicidal ideation: No Renal/ Medical History: Reports: Hx Kidney Stones, Hx Renal Insufficiency. Denies: Hx Peritoneal Dialysis GI Medical History: Reports: Hx Diverticulitis, Hx Gastroesophageal Reflux Disease Musculoskeletal Medical History: Reports Hx Arthritis - psoriatic arthritis, Reports Hx Musculoskeletal Deformity, Reports Hx Musculoskeletal Trauma Past Surgical History: Reports: Hx Abdominal Surgery - Abdominoplasty, Hx Genitourinary Surgery - Bladder surgery for cancer, Hx Hysterectomy, Hx Orthopedic Surgery - back and neck - Immunizations Hx Diphtheria, Pertussis, Tetanus Vaccination: Yes Review of Systems - Review of Systems Constitutional: No symptoms reported EENT: No symptoms reported Cardiovascular: No symptoms reported Respiratory: No symptoms reported Gastrointestinal: No symptoms reported Genitourinary: No symptoms reported Female Genitourinary: No symptoms reported Musculoskeletal: See HPI, Neck pain Skin: No symptoms reported Hematologic/Lymphatic: No symptoms reported Neurological/Psychological: Numbness - left hand, Tingling - left hand -: Yes All other systems reviewed and negative Physical Exam - Vital signs Vitals: Temp Pulse Resp BP Pulse Ox 97.4 F 80 16 122/77 99 03/04/18 16:06 03/04/18 16:06 03/04/18 16:06 03/04/18 16:06 03/04/18 16:06 - Notes Notes: PHYSICAL EXAM GENERAL: Alert, interacts well. Appears somewhat uncomfortable. HEAD: Normocephalic, atraumatic. EYES: Pupils equal, round, and reactive to light. Extraocular movements intact. ENT: Oral mucosa moist, tongue midline. NECK: Supple. Trachea midline. Immobilized in cervical collar. No midline bony tenderness to palpation. Able to move neck through full range of motion. Complains of pain with palpation over the left trapezius muscle and in the paraspinal cervical region. LUNGS: Clear to auscultation bilaterally, no wheezes, rales, or rhonchi. No respiratory distress. HEART: Regular rate and rhythm. No murmurs, gallops, or rubs. ABDOMEN: Soft, non-tender. Non-distended. Bowel sounds present in all 4 quadrants. No guarding, rigidity, or rebound. EXTREMITIES: Moves all 4 extremities spontaneously. No edema, radial and dorsalis pedis pulses 2/4 bilaterally. No cyanosis. NEUROLOGICAL: Alert and oriented x3. Normal speech. Sensation intact throughout. Muscle strength testing at the levels of C5-C6 are 5/5. PSYCH: Normal affect, normal mood. SKIN: Warm, dry, normal turgor. No rashes or lesions noted. (ACE KAMARA) Course - Re-evaluation Re-evalutation: 03/04/18 18:01 CT scan of the cervical spine ordered from triage reveals 5 mm focal protrusion on the left lateral recess proximal neural foramen at the C5-6 level, moderate disc space narrowing at this level. There is a surgical fusion at C6-C7 level. No fractures or dislocation. (KATINA LORENZANA) - Vital Signs Vital signs: Temp Pulse Resp BP Pulse Ox 97.6 F 78 18 132/84 H 98 03/04/18 17:57 03/04/18 17:57 03/04/18 17:57 03/04/18 17:57 03/04/18 17:57 Discharge - Discharge Clinical Impression: Trapezius muscle spasm, Herniation of cervical intervertebral disc with radiculopathy Condition: Stable Disposition: HOME, SELF-CARE Additional Instructions: Herniated Disc You have a herniated disc. A vertebral disc is a tissue "cushion" between t he bones of the spine. When it herniates, a portion bulges out. If it pushes on a nerve, it can cause radiation of pain, numbness, weakness, or tingling in the area served by the affected nerve. Most herniated discs do NOT need surgery. In fact about one-quarter of normal, symptom-free people have at least one herniated disc. Symptoms will usually go away after a few weeks. Rest on a firm surface. Avoid lying on your stomach. If on your back, put a pillow under the knees. If on your side, bend your legs and put a pillow between the knees. Temporarily avoid bending, lifting, and other activity that increases pain. Depending on the severity of symptoms, we may prescribe antiinflammatory medicine such as ibuprofen, corticosteroids, muscle relaxers, or narcotic pain medication. Gentle heat may be used intermittently along the spine. Spinal manipulation or adjustment is usually not recommended for disk herniation. Exercises to strengthen your back and abdominal muscles are prescribed as your symptoms improve. Your doctor will advise you on the proper care at each stage in your recovery. You may be better in a few days -- or healing may take several weeks. Return or call the doctor if you develop severe unrelieved pain, increasing weakness or numbness, or loss of bowel or bladder control. Prescriptions: Metaxalone [Skelaxin 800 mg Tablet] 800 mg PO ASDIR PRN #20 tablet PRN Reason: Forms: Return to Work Referrals: LEO ROBERT MD [NO LOCAL MD] - Follow up as needed PETERSON PÉREZ MD [NO LOCAL MD] - Follow up as needed Scribe Attestation: 03/04/18 19:50 I personally performed the services described in the documentation, reviewed and edited the documentation which was dictated to the scribe in my presence, and it accurately records my words and actions. (KATINA LORENZANA) Scribe Documentation - Scribe Written by Bryn:: Bryn Patterson, 03/04/[id number] acting as scribe for :: [facility]
[2018-03-04 17:59] VITALS: BP 132/84
== END 2018-03-04 18:09 | disposition home or self-care (01) ==
LOC: ER 16:02
DX: M62.838 Other muscle spasm (principal); M50.122 Cervical disc disorder at C5-C6 level with radiculopathy; R20.2 Paresthesia of skin; F17.210 Nicotine dependence, cigarettes, uncomplicated; Z87.442 Personal history of urinary calculi; Z90.710 Acquired absence of both cervix and uterus; Z98.1 Arthrodesis status; Z88.3 Allergy status to other anti-infective agents
CPT/HCPCS: 99283; 72125; L0120

== ENCOUNTER → 2018-04-02 | Outpatient (CLI) | payer MEDICAID ==
--- NOTE | 2018-04-02 13:27 | RADIOLOGY REPORT (SQ) ---
EXAM DESCRIPTION: CERV SP 4 OR 5 VIEWS COMPLETED DATE/TIME: 04/02/2018 12:34 pm REASON FOR STUDY: CERVICAL RADICULOPATHY (AP/LAT/FLEX/EXT ONLY) COMPARISON: None. NUMBER OF VIEWS: Five views. TECHNIQUE: AP, lateral, obliques and odontoid radiographic images acquired of the cervical spine. LIMITATIONS: None. FINDINGS: MINERALIZATION: Normal. ALIGNMENT: Anatomic. STABILITY: No abnormal motion during flexion or extension. VERTEBRAE: Vertebral bodies of normal height. DISCS: Mild disc space narrowing C5-C6 with mildly prominent anterior osteophytes. FORAMINA: No osteophytes or foraminal narrowing. LATERAL AND POSTERIOR ELEMENTS: Facets, lateral masses and spinous processes without significant find ings. HARDWARE: Hardware anterior fusion C6-C7. No radiographic evidence of loosening or infection. SOFT TISSUES: A 7-8 mm well-circumscribed smooth ossific density in the posterior soft tissues at th e C4-C5 level, may represent normal anatomic variant versus finding rim related to prior remote injur y. Lung apices clear. OTHER: The patient is edentulous. IMPRESSION: 1. Degenerative disc disease at C5-C6. 2. Hardware anterior fusion C6-C7. 3. No abnormal motion during flexion or extension. TECHNICAL DOCUMENTATION: JOB ID: [id number] [employer]- All Rights Reserved Reading location - IP/workstation name: [email or web address]
== END ==
LOC: RAD 11:40
PROVIDERS: ATTEND Specialist
DX: M50.122 Cervical disc disorder at C5-C6 level with radiculopathy (principal)
CPT/HCPCS: 72050

== ENCOUNTER 2018-07-03 13:53 | Emergency (ER) | payer SELFPAY ==
--- NOTE | 2018-07-03 14:27 | ER Document Report ---
ED Medical Screen (RME) - General Chief Complaint: Syncope Stated Complaint: POSSIBLE SYNCOPE Time Seen by Provider: 07/03/18 14:18 Mode of Arrival: Ambulatory Information source: Patient TRAVEL OUTSIDE OF THE [place] IN LAST 30 DAYS: No - HPI Patient complains to provider of: SYNCOPE Notes: 07/03/18 14:26 Patient here with complaints of syncope. The patient states that since yesterday she had 3 syncopal episodes. She states that if she turns her head to the left she passes out. She had cervical fusion in April. She does complain of some neck pain. She denies any unilateral numbness, Joes, weakness. Exam No distress, nontoxic-appearing. Nonfocal neurological exam. No bruit. Lungs clear and equal throughout. Heart sounds normal. Plan CBC, CMP, troponin, EKG, chest x-ray. Briefly discussed the case with Dr. Holcomb who states that the patient can have advanced imaging ordered when she is seen and evaluated in the back. An initial examination was made on the patient as part of the triage process, and it was determined a more comprehensive evaluation was necessary. Initial labs were ordered and patient was transferred to another provider in the ED who assumed care and finished evaluation and plan. - Related Data Allergies/Adverse Reactions: iodine Allergy (Verified 07/03/18 13:54) levofloxacin [From Levaquin] Allergy (Verified 06/14/17 09:19) bees Allergy (Uncoded 06/14/17 11:55) Past Medical History - Social History Family history: Arthritis, CAD, CVA, DM, Hyperlipidemia, Hypertension, Malignancy Renal/ Medical History: Reports: Hx Kidney Stones, Hx Renal Insufficiency. Denies: Hx Peritoneal Dialysis GI Medical History: Reports: Hx Diverticulitis, Hx Gastroesophageal Reflux Disease Musculoskeltal Medical History: Reports Hx Arthritis - psoriatic arthritis, Reports Hx Musculoskeletal Deformity, Reports Hx Musculoskeletal Trauma Past Surgical History: Reports: Hx Abdominal Surgery - Abdominoplasty, Hx Genitourinary Surgery - Bladder surgery for cancer, Hx Hysterectomy, Hx Orthopedic Surgery - back and neck - Immunizations Hx Diphtheria, Pertussis, Tetanus Vaccination: Yes Physical Exam - Vital signs Vitals: Temp Pulse Resp BP Pulse Ox 98.1 F 111 H 18 129/76 H 99 07/03/18 13:55 07/03/18 13:55 07/03/18 13:55 07/03/18 13:55 07/03/18 13:55 Course - Vital Signs Vital signs: Temp Pulse Resp BP Pulse Ox 98.1 F 111 H 18 129/76 H 99 07/03/18 13:55 07/03/18 13:55 07/03/18 13:55 07/03/18 13:55 07/03/18 13:55
[2018-07-03 14:43] LABS: ABSOLUTE BASOPHILS # (AUTO) 0.1 10^3/uL (0.0-0.2); ABSOLUTE EOSINOPHILS # (AUTO) 0.2 10^3/uL (0.0-0.6); ABSOLUTE LYMPHOCYTES (AUTO) 2.3 10^3/uL (0.5-4.7); ABSOLUTE MONOCYTES (AUTO) 0.5 10^3/uL (0.1-1.4); ABSOLUTE NEUT (AUTO) 5.2 10^3/uL (1.7-8.2); BASOPHILS % (AUTO) 0.6 % (0-2); EOSINOPHILS % (AUTO) 1.9 % (0-6); HEMATOCRIT 41.8 % (36.0-47.0); HEMOGLOBIN 14.1 g/dL (12.0-15.5); LYMPHOCYTES % (AUTO) 28.1 % (13-45); MEAN CORPUSCULAR HEMOGLOBIN 30.9 pg (27.0-33.4); MEAN CORPUSCULAR HGB CONC 33.7 g/dL (32.0-36.0); MEAN CORPUSCULAR VOLUME 92 fl (80-97); MONOCYTES % (AUTO) 5.7 % (3-13); PLATELET COUNT 304 10^3/uL (150-450); RED BLOOD COUNT 4.56 10^6/uL (3.72-5.28); RED CELL DISTRIBUTION WIDTH 14.1 % (11.5-14.0); SEGMENTED NEUTROPHILS % (AUTO) 63.7 % (42-78); TOTAL CELLS COUNTED % (AUTO) 100 %; WHITE BLOOD COUNT 8.2 10^3/uL (4.0-10.5)
--- NOTE | 2018-07-03 14:50 | RADIOLOGY REPORT (SQ) ---
EXAM DESCRIPTION: CHEST SINGLE VIEW COMPLETED DATE/TIME: 07/03/2018 2:38 pm REASON FOR STUDY: SYNCOPE COMPARISON: None. EXAM PARAMETERS: NUMBER OF VIEWS: One view. TECHNIQUE: Single frontal radiographic view of the chest acquired. RADIATION DOSE: NA LIMITATIONS: None. FINDINGS: LUNGS AND PLEURA: No opacities, masses or pneumothorax. No pleural effusion. MEDIASTINUM AND HILAR STRUCTURES: No masses. Contour normal. HEART AND VASCULAR STRUCTURES: Heart normal in size. Normal vasculature. BONES: No acute findings. HARDWARE: None in the chest. OTHER: Hardware anterior fusion mid lower cervical spine. IMPRESSION: 1. NO ACUTE RADIOGRAPHIC FINDING IN THE CHEST. TECHNICAL DOCUMENTATION: JOB ID: [id number] [employer]- All Rights Reserved Reading location - IP/workstation name: [email or web address]
[2018-07-03 15:01] LABS: ALANINE AMINOTRANSFERASE 21 U/L (9-52); ALBUMIN 4.1 g/dL (3.5-5.0); ALKALINE PHOSPHATASE 91 U/L (38-126); ANION GAP 8 (5-19); ASPARTATE AMINO TRANSFERASE 18 U/L (14-36); BILIRUBIN,DIRECT 0.3 mg/dL (0.0-0.4); BILIRUBIN,TOTAL 0.4 mg/dL (0.2-1.3); BLOOD UREA NITROGEN 20 mg/dL (7-20); CALCIUM 9.6 mg/dL (8.4-10.2); CARBON DIOXIDE 29 mmol/L (22-30); CHLORIDE 105 mmol/L (98-107); GLUCOSE 90 mg/dL (75-110); POTASSIUM 4.3 mmol/L (3.6-5.0); TOTAL PROTEIN 6.9 g/dL (6.3-8.2)
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
--- NOTE | 2018-07-03 16:17 | RADIOLOGY REPORT (SQ) ---
EXAM DESCRIPTION: CT HEAD WITHOUT COMPLETED DATE/TIME: 07/03/2018 4:07 pm REASON FOR STUDY: syncope COMPARISON: None. TECHNIQUE: Axial images acquired through the brain without intravenous contrast. Images reviewed wi th bone, brain and subdural windows. Additional sagittal and coronal reconstructions were generated. Images stored on PACS. All CT scanners at this facility use dose modulation, iterative reconstruction, and/or weight based d osing when appropriate to reduce radiation dose to as low as reasonably achievable (ALARA). [facility]: Dose Right [facility]: CareDose [facility]: Dose Right [facility]: Teradose 4D [facility]: Next Glass RADIATION DOSE: CT Rad equipment meets quality standard of care and radiation dose reduction techniq ues were employed. CTDIvol: 53.2 mGy. DLP: 1017 mGy-cm. mGy. LIMITATIONS: None. FINDINGS: VENTRICLES: Normal size and contour. CEREBRUM: No masses. No hemorrhage. No midline shift. No evidence for acute infarction. Normal gra y/white matter differentiation. No areas of low density in the white matter. CEREBELLUM: No masses. No hemorrhage. No alteration of density. No evidence for acute infarction. EXTRAAXIAL SPACES: No fluid collections. No masses. ORBITS AND GLOBE: No intra- or extraconal masses. Normal contour of globe without masses. CALVARIUM: No fracture. PARANASAL SINUSES: No fluid or mucosal thickening. SOFT TISSUES: No mass or hematoma. OTHER: No other significant finding. IMPRESSION: NORMAL BRAIN CT WITHOUT CONTRAST. EVIDENCE OF ACUTE STROKE: NO. COMMENT: Quality ID # [id number]: Final reports with documentation of one or more dose reduction techniques (e.g., Automated exposure control, adjustment of the mA and/or kV according to patient size, use of iterative reconstruction technique) TECHNICAL DOCUMENTATION: JOB ID: [id number] [employer]- All Rights Reserved Reading location - IP/workstation name: [email or web address]
[2018-07-03] MEDS ORDERED: METHYLPREDNISOLONE INJ 125 MG/2 ML SDV IV ONE (17:02)
[2018-07-03] MEDS ORDERED: DIPHENHYDRAMINE HCL 50 MG/ML VIAL IV ONE (17:02)
[2018-07-03] MEDS ORDERED: FAMOTIDINE INJ/PF 20 MG/2 ML SDV IV ONE (17:02)
--- NOTE | 2018-07-03 19:08 | RADIOLOGY REPORT (SQ) ---
EXAM DESCRIPTION: CTA NECK COMPLETED DATE/TIME: 07/03/2018 6:51 pm REASON FOR STUDY: pain, syncope COMPARISON: None. TECHNIQUE: Axial dynamic scanning technique with dynamic contrast enhancement through the extra-aircraft shipping checker nial carotid and vertebral arteries. Multiplanar reconstruction. 3-D MIPS and Volume-rendered imag es acquired at the workstation and saved to PACS. Images are reviewed in soft tissue, bone, lung w indows. All CT scanners at this facility use dose modulation, iterative reconstruction, and/or weight based d osing when appropriate to reduce radiation dose to as low as reasonably achievable (ALARA). [facility]: Dose Right [facility]: CareDose [facility]: Dose Right [facility]: Teradose 4D [facility]: [email or web address] CONTRAST TYPE AND DOSE: contrast/concentration: Isovue 350.00 mg/ml; Total Contrast Delivered: 70.0 ml; Total Saline Delivered: 75.0 ml RENAL FUNCTION: None required. The patient is less than 50 years old. LIMITATIONS: None. FINDINGS: AORTIC ARCH: Normal three-vessel origin. Bilateral subclavian arteries are patent. No d issection. RIGHT CAROTIDS: Patent common, internal and external carotid arteries without suggestion of significa nt stenosis or irregular plaque. No dissection. RIGHT VERTEBRAL: Patent. No dissection. LEFT CAROTIDS: Patent common, internal and external carotid arteries without suggestion of significan t stenosis or irregular plaque. No dissection. LEFT VERTEBRAL: Patent. No dissection. OTHER: No other significant finding. OTHER: 3-D reconstructions confirm findings. IMPRESSION: NORMAL CTA OF THE EXTRA-CRANIAL CAROTID AND VERTEBRAL ARTERIES. COMMENT: Quality ID #[id number]: Measurements of distal internal carotid diameter were used as the denomina tor for stenosis measurement. TECHNICAL DOCUMENTATION: JOB ID: [id number] Quality ID # [id number]: Final reports with documentation of one or more dose reduction techniques (e.g., Au tomated exposure control, adjustment of the mA and/or kV according to patient size, use of iterative reconstruction technique) 2010 [employer]- All Rights Reserved Reading location - IP/workstation name: [email or web address]
[2018-07-03 21:07] VITALS: BP 149/89
--- NOTE | 2018-07-04 10:33 | EKG REPORT ---
SEVERITY:- NORMAL ECG - SINUS RHYTHM : Confirmed by: Laurie Mina 04-Jul-2018 10:32:43
== END 2018-07-03 21:11 | disposition home or self-care (01) ==
LOC: ER 13:53
DX: R55 Syncope and collapse (principal); G89.29 Other chronic pain; M54.2 Cervicalgia; F17.200 Nicotine dependence, unspecified, uncomplicated; Z88.3 Allergy status to other anti-infective agents; Z90.710 Acquired absence of both cervix and uterus; Z87.442 Personal history of urinary calculi
CPT/HCPCS: 93005; 99284; 96374; 96375; 36415; 85025; 80053; 84484; 71045; 70450; 70498; 93010; J1200; J2930; S0028